=== PATIENT | female | born 1985 | race African-American/Black ===

== ENCOUNTER → 2017-01-28 | Outpatient (CLI) | payer OTHER ==
[2014-12-24 13:28] VITALS: BP 169/103
[2017-01-28 11:39] LABS: BASOPHILS # (AUTO) 0.1 X10^3/uL (0.0-0.1); BASOPHILS % (AUTO) 1.1 % (0.2-1.0); EOSINOPHILS # (AUTO) 0.2 x10^3/uL (0.0-0.2); EOSINOPHILS % (AUTO) 1.4 % (0.9-2.9); HEMATOCRIT 43.4 % (36.0-47.0); HEMOGLOBIN 14.7 g/dL (12.0-16.0); LYMPHOCYTES # (AUTO) 2.4 X10^3/uL (1.3-2.9); LYMPHOCYTES % (AUTO) 19.5 % (21.0-51.0); MEAN CORPUSCULAR HEMOGLOBIN 28.6 pg (27.0-34.0); MEAN CORPUSCULAR HGB CONC 33.9 g/dL (33.0-35.0); MEAN CORPUSCULAR VOLUME 84.4 fL (80.0-100.0); MEAN PLATELET VOLUME 7.9 fL (7.4-11.0); MONOCYTES # (AUTO) 0.5 x10^3/uL (0.3-0.8); MONOCYTES % (AUTO) 4.3 % (0.0-13.0); NEUTROPHILS % (AUTO) 73.7 % (42.0-75.0); PLATELET COUNT 239 X10^3/uL (150.0-450.0); RED BLOOD COUNT 5.14 X10^6/uL (3.5-5.4); RED CELL DISTRIBUTION WIDTH 12.7 % (11.6-16.5); WHITE BLOOD COUNT 12.1 X10^3/uL (3.6-10.0)
[2017-01-28 11:46] LABS: BLOOD UREA NITROGEN 9 mg/dL (7-18); CARBON DIOXIDE 25.1 mmol/L (21-32); CHLORIDE 102 mmol/L (98-107); COR NA(FOR HYPERGLY) 141 mmol/L (136-145); CREATININE 0.73 mg/dL (0.55-1.02); GLUCOSE 254 mg/dL (65-99); SODIUM 137 mmol/L (136-145); eGFR BLACK RACES > 60 (>60); eGFR NON BLACK RACES > 60 (>60)
[2017-01-28 11:48] LABS: CREATININE,URINE 96.52 mg/dL (29-226); MICROALBUMIN,URINE 8.8 mg/L
[2017-01-28 11:50] LABS: HEMOGLOBIN A1C 10.1 % (4.5-6.2)
[2017-01-28 12:46] LABS: ERYTHROCYTE SEDIMENTATION RATE 20 MM/HOUR (0-20)
[2017-02-01 07:28] LABS: ANTI-NUCLEAR ANTIBODY TEST None Detected (None Detected)
== END ==
LOC: LAB 10:16
PROVIDERS: ATTEND Nurse Practitioner Family
DX: I10 Essential (primary) hypertension (principal); E11.9 Type 2 diabetes mellitus without complications; M54.5 Low back pain
CPT/HCPCS: 36415; 80048; 82043; 83036; 85025; 85652; 86308

== ENCOUNTER → 2017-06-07 | Outpatient (CLI) | payer OTHER ==
[2014-12-24 13:28] VITALS: BP 169/103
[2017-06-07 09:49] LABS: BASOPHILS # (AUTO) 0.1 X10^3/uL (0.0-0.1); BASOPHILS % (AUTO) 0.6 % (0.2-1.0); EOSINOPHILS # (AUTO) 0.2 x10^3/uL (0.0-0.2); EOSINOPHILS % (AUTO) 2.1 % (0.9-2.9); HEMATOCRIT 40.8 % (36.0-47.0); HEMOGLOBIN 14.3 g/dL (12.0-16.0); LYMPHOCYTES # (AUTO) 2.6 X10^3/uL (1.3-2.9); LYMPHOCYTES % (AUTO) 22.4 % (21.0-51.0); MEAN CORPUSCULAR HEMOGLOBIN 29.4 pg (27.0-34.0); MEAN CORPUSCULAR VOLUME 84.1 fL (80.0-100.0); MEAN PLATELET VOLUME 7.5 fL (7.4-11.0); MONOCYTES # (AUTO) 0.6 x10^3/uL (0.3-0.8); MONOCYTES % (AUTO) 5.6 % (0.0-13.0); NEUTROPHILS # (AUTO) 7.9 x10^3/uL (2.2-4.8); NEUTROPHILS % (AUTO) 69.3 % (42.0-75.0); PLATELET COUNT 256 X10^3/uL (150.0-450.0); RED BLOOD COUNT 4.86 X10^6/uL (3.5-5.4); RED CELL DISTRIBUTION WIDTH 12.4 % (11.6-16.5); WHITE BLOOD COUNT 11.5 X10^3/uL (3.6-10.0)
[2017-06-07 09:59] LABS: HEMOGLOBIN A1C 8.9 % (4.5-6.2)
[2017-06-07 10:03] LABS: CREATININE,URINE 261.99 mg/dL (29-226); MICROALBUMIN,URINE 11.8 mg/L
[2017-06-07 10:09] LABS: ALANINE AMINOTRANSFERASE 36 Units/L (12-78); ALBUMIN 3.2 g/dL (3.4-5.0); ALKALINE PHOSPHATASE 102 Units/L (46-116); ASPARTATE AMINO TRANSFERASE 16 Units/L (15-37); BLOOD UREA NITROGEN 10 mg/dL (7-18); CALCIUM 8.6 mg/dL (8.5-10.1); CHLORIDE 106 mmol/L (98-107); COR CA(FOR HYPOALB) 9.2 mg/dL (8.5-10.1); COR NA(FOR HYPERGLY) 142 mmol/L (136-145); PHOSPHORUS 2.5 mg/dL (2.6-4.7); SODIUM 139 mmol/L (136-145); TOTAL PROTEIN 7.2 g/dL (6.4-8.2); URIC ACID 3.2 mg/dL (2.6-6.0); eGFR BLACK RACES > 60 (>60); eGFR NON BLACK RACES > 60 (>60)
== END | disposition home or self-care (01) | DRG 639 ==
LOC: LAB 09:00
PROVIDERS: ATTEND Internal Medicine
DX: E11.9 Type 2 diabetes mellitus without complications (principal); I12.9 Hypertensive chronic kidney disease with stage 1 through stage 4 chronic kidney disease, or unspecified chronic kidney disease; N18.9 Chronic kidney disease, unspecified
CPT/HCPCS: 36415; 80053; 82043; 83036; 84100; 84550; 85025

== ENCOUNTER 2017-10-24 11:47 | Inpatient (IN) | payer OTHER ==
[2017-10-24] MEDS ORDERED: NS 1000 ML 1,000 ML ONE (12:11)
[2017-10-24] MEDS ORDERED: PITOCIN IVP ONE (12:15)
[2017-10-24] MEDS ORDERED: CYTOTEC ONE ×3 (12:20→16:47)
[2017-10-24] MEDS: CYTOTEC PO SCH ×2 (12:50→17:00)
[2017-10-24] MEDS: CYTOTEC VG SCH ×2 (12:50→17:00)
[2017-10-24 13:00] LABS: BASOPHILS # (AUTO) 0.1 X10^3/uL (0.0-0.1); BASOPHILS % (AUTO) 0.9 % (0.2-1.0); EOSINOPHILS # (AUTO) 0.1 x10^3/uL (0.0-0.2); EOSINOPHILS % (AUTO) 0.9 % (0.9-2.9); HEMATOCRIT 38.6 % (36.0-47.0); HEMOGLOBIN 13.7 g/dL (12.0-16.0); LYMPHOCYTES # (AUTO) 3.1 X10^3/uL (1.3-2.9); LYMPHOCYTES % (AUTO) 20.5 % (21.0-51.0); MEAN CORPUSCULAR HEMOGLOBIN 29.6 pg (27.0-34.0); MEAN CORPUSCULAR HGB CONC 35.5 g/dL (33.0-35.0); MEAN CORPUSCULAR VOLUME 83.3 fL (80.0-100.0); MEAN PLATELET VOLUME 8.3 fL (7.4-11.0); MONOCYTES # (AUTO) 0.9 x10^3/uL (0.3-0.8); MONOCYTES % (AUTO) 5.9 % (0.0-13.0); NEUTROPHILS # (AUTO) 10.8 x10^3/uL (2.2-4.8); NEUTROPHILS % (AUTO) 71.8 % (42.0-75.0); PLATELET COUNT 98 X10^3/uL (150.0-450.0); RED BLOOD COUNT 4.63 X10^6/uL (3.5-5.4); RED CELL DISTRIBUTION WIDTH 13.6 % (11.6-16.5); WHITE BLOOD COUNT 15.1 X10^3/uL (3.6-10.0)
[2017-10-24] MEDS ORDERED: LR 1000 ML IV 1,000 ML IV SCH (13:00)
[2017-10-24 13:08] LABS: BLOOD UREA NITROGEN 7 mg/dL (7-18); CARBON DIOXIDE 22.7 mmol/L (21-32); CHLORIDE 100 mmol/L (98-107); COR NA(FOR HYPERGLY) 136 mmol/L (136-145); CREATININE 0.54 mg/dL (0.55-1.02); SODIUM 133 mmol/L (136-145); eGFR BLACK RACES > 60 (>60); eGFR NON BLACK RACES > 60 (>60)
[2017-10-24] MEDS ORDERED: HumuLIN R SUBCUT PRN (13:53)
[2017-10-24] MEDS ORDERED: NS 1000 ML 1,000 ML IV SCH (14:00)
[2017-10-24] MEDS: NORMODYNE INJ 20 MG VIAL IVP PRN ×2 (14:20→14:40)
[2017-10-24] MEDS ORDERED: NORMODYNE INJ 20 MG VIAL ONE ×2 (14:40→15:02)
[2017-10-24 14:45] LABS: BILIRUBIN,URINE NEGATIVE (NEGATIVE); BLOOD/HEMOGLOBIN,URINE 1+ (NEGATIVE); GLUCOSE, URINE 1+ (NEGATIVE); KETONES,URINE NEGATIVE (NEGATIVE); LEUKOCYTE ESTERASE ,URINE 2+ (NEGATIVE); NITRITES,URINE NEGATIVE (NEGATIVE); PROTEIN,URINE 2+ (NEGATIVE); UROBILINOGEN,URINE 1+ (NORMAL)
[2017-10-24 14:59] LABS: APPEARANCE,URINE SLIGHTLY HAZY (CLEAR); BACTERIA,URINE 2+ /HPF (NEGATIVE); COLOR,URINE YELLOW (YELLOW); SQUAMOUS EPITHELIAL CELL,UR MODERATE /HPF (NEGATIVE)
[2017-10-24] MEDS ORDERED: NORMODYNE INJ 20 MG VIAL IVP ONE ×2 (15:00→15:20)
[2017-10-24] MEDS ORDERED: NUBAIN INJ 10 ONE ×2 (16:08→17:45)
[2017-10-24] MEDS ORDERED: PITOCIN ONE (16:08)
[2017-10-24] MEDS ORDERED: D5 1/2 NS 1L W PITOCIN 20 UNITS/L 20 UNITS/1,000 ML BAG IV ONE (16:09)
[2017-10-24] MEDS: NUBAIN INJ 200 MG VIAL MULTIDOSE IVP PRN ×2 (16:10→18:00)
--- NOTE | 2017-10-24 17:03 | DR.OB ---
OB Quick Note - Assessment/Plan Assessment/Plan: L&D 10/24/17 at 5:00pm S-Pt. complains of CTX. O-Afebrile,VSS FHT=none CTX=uterine irritability CVX=1-2cm/thick/-1 Cytotec 600mg placed vaginally, no gel. Cytotec 200mg given orally. A-IUFD at 24 weeks for induction CHTN IDDM P-Cont. Cytotec induction Anticipate
[2017-10-24] MEDS ORDERED: ANCEF VIAL 1 GM ONE (17:37)
[2017-10-24] MEDS ORDERED: NS 100 ML IV 100 ML IV ONE (17:38)
[2017-10-24] MEDS ORDERED: TYLENOL 325 MG TAB PO ONE (17:45)
[2017-10-24] MEDS ORDERED: LR 1000 ML IV 1,000 ML IV ONE (18:01)
[2017-10-24] MEDS ORDERED: MOTRIN TAB 800 MG PO PRN ×2 (18:15→19:23)
[2017-10-24] MEDS ORDERED: PHENERGAN INJ 25 MG IV PRN ×2 (18:15→19:23)
--- NOTE | 2017-10-24 18:15 | DR.OB ---
OB Quick Note - Assessment/Plan Assessment/Plan: Delivery Note [facility] 10/24/17 at 6:10pm Patient with fetus in vagina. With one push, and placenta delivered intact and together. No CVX / vaginal / perineal tears. appeared unremarkable, female. Cord/placenta unremarkable.
[2017-10-24] MEDS ORDERED: D5 1/2 NS 1000 ML 1,000 ML with PITOCIN 20 UNITS IV SCH ×2 (19:00)
[2017-10-24] MEDS ORDERED: AMBIEN PO PRN (19:23)
[2017-10-24] MEDS ORDERED: MILK OF MAGNESIA PO PRN (19:23)
[2017-10-24] MEDS ORDERED: ADACEL TDaP IM ONE (19:23)
[2017-10-24] MEDS ORDERED: DERMOPLAST SPRAY TOP PRN (19:23)
[2017-10-24] MEDS ORDERED: LANTUS SC SCH (19:23)
[2017-10-24] MEDS ORDERED: NORMODYNE INJ 20 MG VIAL IVP PRN (19:23)
[2017-10-24] MEDS ORDERED: TYLENOL 325 MG TAB PO PRN (19:23)
[2017-10-24] MEDS ORDERED: SNACK - Diabetic Appropriate PO SCH ×3 (20:00)
[2017-10-24] MEDS: ZANTAC PO SCH (20:47)
[2017-10-24] MEDS: PERCOCET TAB 5/325 MG PO PRN (20:56)
[2017-10-24] MEDS: HumuLIN R SUBCUT PRN (20:58)
[2017-10-24] MEDS: ANCEF VIAL 1 GM 1 GM in NS 100 ML IV + SPIKE MINIBAG* 100 ML IV SCH (21:00)
[2017-10-24] MEDS ORDERED: TOPROL XL PO SCH (21:00)
[2017-10-25] MEDS: D5 1/2 NS 1000 ML 1,000 ML with PITOCIN 20 UNITS IV SCH ×4 (05:15→11:20)
[2017-10-25] MEDS: ANCEF VIAL 1 GM 1 GM in NS 100 ML IV + SPIKE MINIBAG* 100 ML IV SCH (06:00)
[2017-10-25] MEDS: HumuLIN R SUBCUT PRN ×2 (06:02→11:53)
[2017-10-25 06:28] LABS: HEMATOCRIT 34.5 % (36.0-47.0); HEMOGLOBIN 12.4 g/dL (12.0-16.0)
[2017-10-25] MEDS: ZANTAC PO SCH (08:33)
[2017-10-25] MEDS ORDERED: PRENATAL PLUS PO SCH (09:00)
[2017-10-25] MEDS ORDERED: NORVASC TAB 10 MG PO SCH (09:00)
[2017-10-25] MEDS: PERCOCET TAB 5/325 MG PO PRN (10:06)
[2017-10-25 13:54] VITALS: BP 169/92
== END 2017-10-25 14:15 | disposition home or self-care (01) | DRG 774 ==
LOC: LD 12:03 → MED/SURG 19:39
PROVIDERS: ADMIT Specialist; ATTEND Specialist
PROC: 10E0XZZ Delivery of Products of Conception, External Approach (ICD-10-PCS; principal; 2017-10-24)
DX: O24.112 Pre-existing type 2 diabetes mellitus, in pregnancy, second trimester (principal); Z37.1 Single stillbirth; O10.013 Pre-existing essential hypertension complicating pregnancy, third trimester; Z79.4 Long term (current) use of insulin; O99.89 Other specified diseases and conditions complicating pregnancy, childbirth and the puerperium; N87.0 Mild cervical dysplasia; Z3A.24 24 weeks gestation of pregnancy; Z23 Encounter for immunization
CPT/HCPCS: 36415; 59409; 80048; 80307; 81001; 85014; 85018; 85025; 86592; 86850; 86900; 86901; A4216; A4222; S0191; S0197; G0434; J0690; J1815; J2300; J2590; J3490; J7042; J7120